=== PATIENT | male | born 1965 | race Caucasian/White ===

== ENCOUNTER 2018-02-25 10:29 | Emergency (ER) | payer MEDICAID ==
[2018-02-25 14:47] LABS: APPEARANCE CLEAR (CLEAR); COLOR YELLOW (YELLOW); GLUCOSE NEGATIVE (NEGATIVE); NITRITE NEGATIVE (NEGATIVE); PROTEIN NEGATIVE (NEGATIVE)
[2018-02-25 14:48] LABS: BILIRUBIN NEGATIVE (NEGATIVE); KETONE NEGATIVE (NEGATIVE); UROBILINOGEN NORMAL (NORMAL)
[2018-02-25 14:51] LABS: UDS - AMPHET NEGATIVE QUAL (NEGATIVE); UDS - BARB NEGATIVE QUAL (NEGATIVE); UDS - BENZO NEGATIVE QUAL (NEGATIVE); UDS - COCAINE NEGATIVE QUAL (NEGATIVE); UDS - OPIATE NEGATIVE QUAL (NEGATIVE); UDS - PCP NEGATIVE QUAL (NEGATIVE); UDS - THC POSITIVE QUAL (NEGATIVE)
== END 2018-02-25 15:26 | disposition home or self-care (01) ==
LOC: D.ER 10:29
PROVIDERS: Emergency Medicine
DX: M79.605 Pain in left leg (principal); M79.604 Pain in right leg; M54.5 Low back pain; W01.0XXA Fall on same level from slipping, tripping and stumbling without subsequent striking against object, initial encounter; Y93.89 Activity, other specified; Y92.019 Unspecified place in single-family (private) house as the place of occurrence of the external cause; F17.200 Nicotine dependence, unspecified, uncomplicated

== ENCOUNTER 2019-09-08 13:34 | Emergency (ER) | payer MEDICAID ==
[~2019-09-08] VITALS: Ht 185.4 cm; Wt 79.5 kg
[2019-09-08 13:45] VITALS: Ht 185.4 cm; Wt 79.5 kg
[2019-09-08] MEDS ORDERED: VOLTAREN75 MG PO (16:44)
[2019-09-08] MEDS ORDERED: TALWIN NX1 TAB PO (16:44)
[2019-09-08 16:58] VITALS: BP 122/82
== END 2019-09-08 16:59 | disposition home or self-care (01) ==
LOC: D.ER 13:34
DX: S69.92XA Unspecified injury of left wrist, hand and finger(s), initial encounter (principal); X58.XXXA Exposure to other specified factors, initial encounter; F17.200 Nicotine dependence, unspecified, uncomplicated

== ENCOUNTER 2019-09-16 12:43 | Emergency (ER) | payer MEDICAID ==
[~2019-09-16] VITALS: Ht 185.4 cm; Wt 72.7 kg
[~2019-09-16 12:43] MED LIST: TALWIN NX1 TAB PO; VOLTAREN75 MG PO
[2019-09-16 12:59] VITALS: BP 146/89; Ht 185.4 cm; Wt 72.7 kg
[2019-09-16] MEDS ORDERED: NAPROSYN500 MG PO (15:10)
[2019-09-16] MEDS ORDERED: PERMETHRIN60 GM TOPICAL (15:10)
== END 2019-09-16 15:40 | disposition home or self-care (01) ==
LOC: D.ER 12:43
DX: S65.50 Unspecified injury of blood vessel of other and unspecified finger (principal); X58.XXXA Exposure to other specified factors, initial encounter; B86 Scabies

== ENCOUNTER 2020-05-15 07:41 | Emergency (ER) | payer MEDICAID ==
[~2020-05-15] VITALS: Ht 185.4 cm; Wt 72.7 kg
[~2020-05-15 07:41] MED LIST changes: +NAPROSYN500 MG PO; +PERMETHRIN60 GM TOPICAL
[2020-05-15 08:01] VITALS: Ht 185.4 cm; Wt 72.7 kg
[2020-05-15 08:18] LABS: BASOPHILS 0.4 % (0-2); EOSINOPHILS 0 % (0-7); HEMATOCRIT 46.4 % (42.0-54.0); HEMOGLOBIN 16.2 g/dL (13.5-17.5); MCH 33.1 pg (26.0-34.0); MCHC 34.9 g/dL (31.0-37.0); MCV 94.9 fL (80.0-100.0); MONOCYTES 8.2 % (2-11); NEUTROPHILS 79.4 % (40-80); PLATELET COUNT 111 10x3/uL (130-400); RBC 4.89 10x6/uL (4.20-6.10); RDW 14.2 % (11.5-14.5); WBC 5.5 10x3/uL (4.8-10.8)
[2020-05-15 08:26] LABS: BILIRUBIN NEGATIVE (NEGATIVE); GLUCOSE NEGATIVE (NEGATIVE); KETONE MODERATE mg/dL (NEGATIVE); NITRITE POSITIVE (NEGATIVE)
[2020-05-15 08:26] LABS: CALC OSMOLALITY 251 mosm/kg (275-300); CALCIUM 9.4 mg/dL (8.5-10.1); CHLORIDE - SERUM 89 mmol/L (98-107); GLUCOSE 140 mg/dL (74-106); POTASSIUM - SERUM 4.1 mmol/L (3.5-5.1); SODIUM 125 mmol/L (136-145); UREA NITROGEN 7 mg/dL (7-18); eGFR NON AFRICAN AMERICAN 82 mL/min (90-120)
[2020-05-15 08:29] LABS: BACTERIA MODERATE /hpf (NEGATIVE); EPITHELIAL CELLS 0-5 /hpf (0-5); WHITE CELLS - URINE 0-5 /hpf (NEGATIVE)
[2020-05-15 08:34] LABS: ALBUMIN 3.8 g/dL (3.4-5.0); ALKALINE PHOSPHATASE 78 U/L (30-120); ALT (SGPT) 79 U/L (10-68); AMYLASE - SERUM 80 U/L (25-115); LIPASE 241 U/L (73-393); PROTEIN - SERUM 9.8 g/dL (6.4-8.2)
[2020-05-15 08:38] LABS: TROPONIN-I < 0.017 ng/mL (0.000-0.060)
[2020-05-15] MEDS ORDERED: ZOFRAN ODT4 MG/UDTAB PO (13:36)
[2020-05-15 13:47] VITALS: BP 128/72
== END 2020-05-15 13:48 | disposition home or self-care (01) ==
LOC: D.ER 07:41
PROVIDERS: Family Medicine
DX: A08.4 Viral intestinal infection, unspecified (principal); E87.1 Hypo-osmolality and hyponatremia; R11.2 Nausea with vomiting, unspecified; R10.9 Unspecified abdominal pain

== ENCOUNTER 2020-06-02 19:46 | Emergency (ER) | payer MEDICAID ==
[~2020-06-02] VITALS: Ht 185.4 cm; Wt 72.7 kg
[~2020-06-02 19:46] MED LIST changes: +ZOFRAN ODT4 MG/UDTAB PO
[2020-06-02 19:54] VITALS: Ht 185.4 cm; Wt 72.7 kg
[2020-06-02 20:33] LABS: BASOPHILS 0.2 % (0-2); EOSINOPHILS 0 % (0-7); HEMATOCRIT 44.6 % (42.0-54.0); HEMOGLOBIN 15.2 g/dL (13.5-17.5); IMMATURE GRANULOCYTES 0.4 % (0-5); MCH 33.1 pg (26.0-34.0); MCHC 34.1 g/dL (31.0-37.0); MCV 97.2 fL (80.0-100.0); MONOCYTES 7.7 % (2-11); NEUTROPHILS 79.7 % (40-80); PLATELET COUNT 150 10x3/uL (130-400); RBC 4.59 10x6/uL (4.20-6.10); RDW 14.6 % (11.5-14.5); WBC 8.3 10x3/uL (4.8-10.8)
[2020-06-02 20:43] LABS: CALC OSMOLALITY 258 mosm/kg (275-300); CALCIUM 9.3 mg/dL (8.5-10.1); CARBON DIOXIDE 27.3 mmol/L (21.0-32.0); CHLORIDE - SERUM 92 mmol/L (98-107); CREATININE - SERUM 1.2 mg/dL (0.6-1.3); GLUCOSE 133 mg/dL (74-106); POTASSIUM - SERUM 3.7 mmol/L (3.5-5.1); SODIUM 129 mmol/L (136-145); UREA NITROGEN 7 mg/dL (7-18); eGFR NON AFRICAN AMERICAN 66 mL/min (90-120)
[2020-06-02 20:52] LABS: ALBUMIN 3.5 g/dL (3.4-5.0); ALKALINE PHOSPHATASE 74 U/L (30-120); ALT (SGPT) 45 U/L (10-68); AMYLASE - SERUM 84 U/L (25-115); BILIRUBIN - TOTAL 0.95 mg/dL (0.2-1.3); LIPASE 150 U/L (73-393); PROTEIN - SERUM 9.2 g/dL (6.4-8.2)
[2020-06-02 20:54] LABS: TROPONIN-I < 0.017 ng/mL (0.000-0.060)
[2020-06-02 21:14] LABS: BILIRUBIN NEGATIVE (NEGATIVE); GLUCOSE NEGATIVE (NEGATIVE); KETONE LARGE mg/dL (NEGATIVE); NITRITE NEGATIVE (NEGATIVE); UROBILINOGEN NORMAL (NORMAL)
[2020-06-02 21:15] LABS: BACTERIA MODERATE /hpf (NEGATIVE); RED CELLS - URINE 0-5 /hpf (0-5); WHITE CELLS - URINE OCC /hpf (NEGATIVE)
[2020-06-02 21:20] LABS: C-REACTIVE PROTEIN 0.8 mg/dL (0.0-0.9)
[2020-06-02] MEDS ORDERED: CEFUROXIME500 MG PO (21:53)
[2020-06-02] MEDS ORDERED: ZOFRAN ODT4 MG/UDTAB PO (21:53)
[2020-06-02] MEDS ORDERED: PREDNISONE20 MG PO (21:53)
[2020-06-02 22:19] VITALS: BP 133/90
== END 2020-06-02 22:19 | disposition home or self-care (01) ==
LOC: D.ER 19:46
PROVIDERS: Family Medicine
DX: J44.1 Chronic obstructive pulmonary disease with (acute) exacerbation (principal); R82.71 Bacteriuria; R74.0 Nonspecific elevation of levels of transaminase and lactic acid dehydrogenase [LDH]; I10 Essential (primary) hypertension; E87.8 Other disorders of electrolyte and fluid balance, not elsewhere classified; E87.1 Hypo-osmolality and hyponatremia; R11.2 Nausea with vomiting, unspecified; R07.89 Other chest pain; R53.1 Weakness; Z72.0 Tobacco use